=== PATIENT | female | born 1995 | race Caucasian/White ===

== ENCOUNTER 2020-08-18 14:03 | Emergency (ER) | payer OTHER ==
[~2020-08-18 14:03] MED LIST: FLOMAX0.4 MG PO; HYDROCODON-ACE1 EAC4 PO; NAPROXEN500 MG PO
[2020-08-18 15:31] LABS: BASOPHIL 0.2 % (0-2); EOSINOPHIL 0.4 % (0-5); HCT 30.1 % (37.0-47.0); HGB 10.4 g/dl (12.5-16.0); MCH 31.1 pg (25.0-31.0); MCHC 34.6 g/dL (32.0-36.0); MCV 90.1 fL (78.0-100.0); MONOCYTE 8.3 % (0-12); MPV 9.5 fL (6.0-9.5); NEUTROPHIL 71.2 % (41-80); NRBC 0; PLT 293 K/uL (150-400); RBC 3.34 M/uL (4.20-5.40); RDW 14.6 % (11.5-14.0); WBC 10.6 K/uL (4.0-10.5)
[2020-08-18 15:31] LABS: BILIRUBIN NEGATIVE (NEGATIVE); BLOOD NEGATIVE Ery/uL (NEGATIVE); CLARITY CLEAR (CLEAR); COLOR YELLOW (YELLOW); GLUCOSE (U) NORMAL (NORMAL); LEUKOCYTES TRACE Leu/uL (NEGATIVE); NITRITE NEGATIVE (NEGATIVE); PROTEIN NEGATIVE (NEGATIVE); UROBILINOGEN 0.2 mg/dL (0.2-1.0); pH 6.5 (5.0-9.0)
[2020-08-18 15:37] LABS: BACTERIA 1+
[2020-08-18 15:40] LABS: BUN/CREAT RATIO (CALC) 11.9 RATIO; CREATININE 0.59 mg/dL (0.51-0.95); POTASSIUM 3.2 mmol/L (3.5-5.1)
[2020-08-18] MEDS ORDERED: K-DUR20 MEQ PO (18:44)
[2020-08-18] MEDS ORDERED: CEFDINIR300 MG PO (18:44)
== END 2020-08-18 19:02 | disposition home or self-care (01) ==
LOC: FER 14:03
PROVIDERS: Nurse Practitioner
DX: O23.42 Unspecified infection of urinary tract in pregnancy, second trimester (principal); O99.282 Endocrine, nutritional and metabolic diseases complicating pregnancy, second trimester; E87.6 Hypokalemia; O99.012 Anemia complicating pregnancy, second trimester; D64.9 Anemia, unspecified; O99.891 Other specified diseases and conditions complicating pregnancy; R42 Dizziness and giddiness; R00.0 Tachycardia, unspecified; Z98.890 Other specified postprocedural states; Z3A.26 26 weeks gestation of pregnancy
CPT/HCPCS: 36415; 80048; 81001; 85025; 93005